=== PATIENT | male | born 1945 | race Caucasian/White ===

== ENCOUNTER 2018-05-19 10:36 | Day surgery (SDC) | payer MEDICARE ==
[2018-05-19] MEDS ORDERED: PROPOFOL 10 MG/ML VIAL IV ONE (10:37)
[2018-05-19] MEDS ORDERED: LIDOCAINE 2% MDV (20MG/ML) 20ML VIAL IV ONE (10:37)
--- NOTE | 2018-05-24 16:40 | Operative Note ---
DATE OF SURGERY: OPERATION: Surveillance COLONOSCOPY. PREOPERATIVE DIAGNOSIS: Personal history of colon polyps, 5-year followup. POSTOPERATIVE DIAGNOSIS: Colonic diverticulosis. PROCEDURE: After informed consent was obtained from the patient, he was placed in the left lateral decubitus position in the endoscopy suite, sedated and monitored by the department of anesthesia. Digital rectal exam was unremarkable. A well-lubricated [id number] colonoscope was inserted into the rectum and advanced to the cecum. Preparation quality was good to excellent. The ileocecal valve, appendiceal orifice, ascending colon, transverse colon, descending colon, sigmoid colon, and rectum were free of inflammatory changes, mass lesions, or polyps. There were scattered diverticula throughout the colon. The rectum was unremarkable in forward and in J-turn views. The endoscope was straightened, the rectal ampulla deflated, and the endoscope was removed. RECOMMENDATIONS: The patient should follow a high-fiber diet and consider a fiber supplement. I would recommend repeat exam in 5 years given his history. As always, thank you for allowing me to participate in the healthcare of your patients. CC: DO ANAT Gross
== END 2018-05-19 12:36 | disposition home or self-care (01) ==
LOC: HOP 10:36
PROVIDERS: ATTEND Internal Medicine Gastroenterology
DX: Z12.11 Encounter for screening for malignant neoplasm of colon (principal); Z86.010 Personal history of colon polyps; K57.30 Diverticulosis of large intestine without perforation or abscess without bleeding; I10 Essential (primary) hypertension

== ENCOUNTER 2019-04-16 10:17 | Emergency (ER) | payer MEDICARE ==
[2019-04-16] MEDS ORDERED: Diph,Pert(Acell),Tet Vac 0.5 ML SYR IM ONE (10:28)
[2019-04-16] MEDS ORDERED: CEPHALEXIN 500 MG CAPSULE PO STA (10:28)
--- NOTE | 2019-04-16 10:28 | Emergency Department Record ---
History of Present Illness - General Chief Complaint: Wound, puncture Stated Complaint: PUNCTURE LT ARM Time Seen by Provider: 04/16/19 10:21 Source: Patient Mode of Arrival: Ambulatory Limitations: No limitations - History of Present Illness Initial Commments: 74 yo male presents with fish hook buried in his arm. He caught a large pike that jump up and hooked himself as well. He then cut the hook a the level of the skin. It is not visible. He is unsure of when his last tetanus shot was. No current pain, numbness or tingling. -: Hour(s) (1.2) Extremity Location: Left: Forearm Place: Other Context: Accidental Associated Symptoms: None Treatments Prior to Arrival: Bandage - [place] Coma Scale Eye Response: (4) Open spontaneously Motor Response: (6) Obeys commands Verbal Response: (5) Oriented [place] Total: 15 - Related Data Hx Tetanus Toxoid Vaccination: Yes Patient Tetanus UTD (within 5 yrs): No Previous Rx's Medication Instructions Recorded Cephalexin [Keflex] 500 mg PO TID #21 cap 04/16/19 Allergies Allergy/AdvReac Type Severity Reaction Status Date / Time No Known Drug Allergies Allergy Verified 04/16/19 10:27 Review of Systems Constitutional: Denies: Chills, Fever, Weakness Eyes: Denies: Eye discharge ENT: Denies: Congestion Respiratory: Denies: Cough Cardiovascular: Denies: Chest pain, Dyspnea on exertion, Edema Endocrine: Denies: Fatigue Gastrointestinal: Denies: Abdominal pain, Diarrhea, Nausea, Vomiting Genitourinary: Denies: Dysuria, Frequency, Hematuria Musculoskeletal: Denies: Arthralgia, Back pain, Myalgia Skin: Denies: Bruising, Change in color, Rash Neurological: Denies: Headache Psychiatric: Denies: Anxiety Hematological/Lymphatic: Denies: Easy bleeding, Easy bruising Past Medical History - SOCIAL HISTORY Smoking Status: Former smoker - RESPIRATORY Hx Respiratory Disorders: Yes Hx Pneumonia: Yes (1983) - CARDIOVASCULAR Hx Cardio Disorders: Yes Hx Hypertension: Yes (on meds fair control) - NEURO Hx Neuro Disorders: No - GI Hx GI Disorders: Yes Hx Abdominal Pain: No (denies) Hx Reflux: Yes Hx of Polyps: Yes - Hx Genitourinary Disorders: Yes Hx Prostate Problems: Yes (enlarged prostate) - ENDOCRINE Hx Endocrine Disorders: No Hx Diabetes: No Hx Thyroid Disease: No - MUSCULOSKELETAL Hx Musculoskeletal Disorders: Yes Hx Arthritis: Yes (fingers knees shoulders) - PSYCH Hx Psych Problems: No - HEMATOLOGY/ONCOLOGY Hx Hematology/Oncology Disorders: Yes Hx Cancer: Yes (melanoma left arm recent dx) Family Medical History Hx Heart Disease: Mother Hx Stroke: Father Physical Exam - General General Appearance: Alert, Oriented x3, Cooperative, No acute distress Limitations: No limitations - Head Head exam: Atraumatic - Eye Eye exam: Normal appearance - ENT ENT exam: Normal exam Ear exam: Normal external inspection Nasal Exam: Normal inspection Mouth exam: Normal external inspection - Neck Neck exam: Normal inspection - Cardiovascular Peripheral Pulses: 2+: Radial (L) - Extremities Extremities exam: Full ROM, Normal capillary refill. negative: Normal inspection, Tenderness Image of Full Body: 1 - 2 small holes. No visible or palpable hook - Neurological Neurological exam: Alert, Oriented X3 - Psychiatric Psychiatric exam: Normal affect, Normal mood - Skin Skin exam: Dry, Normal color, Warm Course - Reevaluation(s) Reevaluation #1: 04/16/19 10:57 XR demonstrated a forearm FB, mid forearm Procedure: FB removal Betadine Prep Lidocaine 1% with Epi 1ml 3mm incision FB easily found and removed Wound irrigated DC instructions and wound instructions discussed Tetanus updated in the ED Disposition Disposition: Discharge Clinical Impression: Fish hook injury of left upper arm Disposition: Home, Self-Care Condition: (1) Good Instructions: Soft Tissue Foreign Body (ED) Additional Instructions: Clean the area daily Return if pain, red, pus or any other concerns Take the Keflex as directed Prescriptions: Cephalexin [Keflex] 500 mg PO TID #21 cap Forms: Patient Portal Access Time of Disposition: 10:59 Quality - Quality Measures Quality Measures: N/A - Blood Pressure Screening Does Patient Have Any of the Following: No Blood Pressure Classification: Hypertensive Reading Systolic Measurement: 157 Diastolic Measurement: 77 Screening for High Blood Pressure: < Pre-Hypertensive BP, F/U Documented > [G8950] Pre-Hypertensive Follow-up Interventions: Referral to alternative/primary care provider.
--- NOTE | 2019-04-17 08:42 | RADIOLOGY REPORT ---
EXAM: LEFT FOREARM, TWO VIEWS HISTORY: PATIENT HAS A HISTORY OF A FISH HOOK BEING CAUGHT IN THE PATIENT'S FOREARM. TECHNIQUE: Two views of the left forearm are provided without comparison examinations. FINDINGS: There is no radiographic evidence of a fracture or dislocation of the left forearm. Moderate joint space loss and subchondral sclerosis is noted at the radiocarpal articulation as well as the first carpal metacarpal articulation suggesting osteoarthritic changes. There is a curvilinear metallic density identified within the dorsal soft tissue of the mid left forearm compatible with the patient's given clinical history of a fish hook. Enthesophytes are identified within the proximal radial tuberosity. Well corticated osseous densities are identified in the region of the antecubital fossa on the lateral projection which localizes to the medial epicondyle on the AP projection. This finding may represent a radiopaque density within the soft tissue. Clinical correlation is recommended. IMPRESSION: 1. OSTEOARTHRITIC CHANGES OF THE LEFT WRIST ARE NOTED DESCRIBED. 2. CURVILINEAR METALLIC DENSITY WITHIN THE DORSAL SOFT TISSUE OF THE LEFT MID FOREARM IS COMPATIBLE WITH THE PATIENT'S KNOWN CLINICAL HISTORY OF FISH HOOK. JOB NUMBER: [id number] MTDD
== END 2019-04-16 11:07 | disposition home or self-care (01) ==
LOC: ER 10:17
DX: S41.142A Puncture wound with foreign body of left upper arm, initial encounter (principal); W45.8XXA Other foreign body or object entering through skin, initial encounter; Y92.89 Other specified places as the place of occurrence of the external cause; I10 Essential (primary) hypertension; Z87.891 Personal history of nicotine dependence
CPT/HCPCS: 10120; 90715; 96372; 99283; 99284